=== PATIENT | female | born 1995 | race African-American/Black ===

== ENCOUNTER 2016-09-11 14:17 | Emergency (ER) | payer OTHER, MEDICAID ==
[~2016-09-11] VITALS: Ht 177.8 cm; Wt 110.0 kg
[~2016-09-11 14:17] MED LIST: PRENCAP10 PO
[2016-09-11 15:02] VITALS: BP 119/77; PULSE 97; RESP 18; TEMP 98.8; O2SAT 94
[2016-09-11 15:03] VITALS: BP 119/77; PULSE 97; RESP 18; TEMP 98.8; O2SAT 94
[2016-09-11] MEDS ORDERED: ACETAMINOPHEN 325 MG TAB PO ONE (15:15)
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
[2016-09-11] MEDS ORDERED: DICL75TA PO (16:05)
[2016-09-11] MEDS ORDERED: ROBA750T PO (16:05)
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
== END 2016-09-11 18:25 | disposition home or self-care (01) ==
LOC: NEDAMB 14:17
DX: S13.4XXA Sprain of ligaments of cervical spine, initial encounter (principal); R51 Headache; V49.59XA Passenger injured in collision with other motor vehicles in traffic accident, initial encounter
CPT/HCPCS: 70450; 72072; 72125